=== PATIENT | female | born 1985 | race Caucasian/White ===

== ENCOUNTER 2019-05-31 09:17 | Emergency (ER) | payer OTHER, SELFPAY ==
[2019-05-31 09:27] VITALS: BP 102/69; PULSE 88; RESP 16; TEMP 37; O2SAT 99
== END 2019-05-31 10:31 | disposition left against medical advice (07) ==
LOC: EXPCOLL 09:21
PROVIDERS: Emergency Provider Registered Nurse
DX: R35.0 Frequency of micturition (principal)
CPT/HCPCS: 81003; 82962; 99199